=== PATIENT | female | born 1950 | race Caucasian/White ===

== ENCOUNTER → 2023-08-17 06:31 | Day surgery (SDC) | payer MEDICARE, SELFPAY | LOC: GI 06:31 | PROVIDERS: ATTENDING PHYSICIAN Internal Medicine Gastroenterology; FAMILY PHYSICIAN Nurse Practitioner Family | DX: K57.30 Diverticulosis of large intestine without perforation or abscess without bleeding (principal); K64.8 Other hemorrhoids; R19.4 Change in bowel habit; Z79.01 Long term (current) use of anticoagulants | CPT/HCPCS: 45378 ==

== ENCOUNTER 2024-01-11 23:01 | Inpatient (IN) | payer MEDICARE, SELFPAY ==
[2024-01-11] VITALS (9 sets, daily range): BP systolic 106–134; BP diastolic 56–87; BMI 31.8
[2024-01-11 13:48] LABS: Hematocrit 35.9 % (37.0-47.0); Hemoglobin 11.9 g/dL (12.0-16.0); Mean Corp Hgb Conc. 33.1 g/dL (33.0-37.0); Mean Corpuscular Hgb 28.9 pg (27.0-31.0); Mean Corpuscular Volume 87.1 fL (81.0-99.0); Platelet Count 297 10^3/uL (130-400); Red Blood Cell Count 4.12 10^6/uL (4.20-5.40); Red Cell Dist. Width 16.1 % (11.5-14.5); White Blood Cell Count 10.9 10^3/uL (4.8-10.8)
[2024-01-11 14:04] LABS: % Basophils 0.3 % (0-2); % Eosinophils 0.5 % (0-6); % Lymphocytes 7.1 % (20.5-51.1); % Monocytes 8.7 % (1.7-9.3); % Neutrophils 82.4 % (42.2-75.2); Absolute Eosinophils 0.1 10^3/uL (0-0.7); Absolute Immature Granulocytes 0.1 10^3/uL (0-0.05); Absolute Lymphocytes 0.8 10^3/uL (1.2-3.4); Nucleated Red Blood Cells % 0 %
[2024-01-11 15:10] LABS: ALT (SGPT) 12 U/L (0-35); AST (SGOT) 27 U/L (14-36); Albumin 3.9 g/dl (3.5-5.0); Alkaline Phosphatase 132 U/L (38-126); Blood Urea Nitrogen 37 mg/dl (7-17); Calcium 9.7 mg/dl (8.4-10.2); Carbon Dioxide 19 mmol/L (22-30); Chloride 101 mmol/L (98-107); Glucose 125 mg/dl (70-99); Lipase 632 U/L (23-300); Potassium 4.2 mmol/L (3.5-5.1); Sodium 136 mmol/L (135-145); Total Bilirubin 0.8 mg/dl (0.2-1.3); eGFR 26.22
[2024-01-11] MEDS: OMNIPAQUE 50 ML PO (17:56)
--- NOTE | 2024-01-11 18:23 | ED.GENMED ---
History of Present Illness
General
Chief Complaint: Abdominal Pain
Source: patient and spouse
Exam Limitations: none
Time Seen by Provider: 01/11/24 17:40
Nursing documentation reviewed up to this point in time: agreed with
History of Present Illness
History of Present Illness:
73-year-old female presents emergency room complaining of abdominal pain for the past 6 days. It started Sunday, and she has pain in her mid abdomen. She complains of the most pain in her left lower quadrant. She has a history of diverticulitis
and this feels similar. She also notes a temperature of 101 for the past 2 days.
Past History
Past History
ED Past Medical History: CAD, HTN, Hypercholesterolemia and Other (Diverticulitis)
ED Past Surgical History: Orthopedic (Left hip replacement, right knee replacement, lumbar surgery, left knee repair, right shoulder repair)
Social History
Tobacco: Non-smoker
Alcohol: None
Drug: None
Personal:
Living: with family
Review of Systems
Review of Systems
Allergies reviewed?: Yes
All Other Systems: Not applicable
Constitutional: Reports no symptoms
EENT: Reports no symptoms
Respiratory: Reports no symptoms
Cardiac: Reports no symptoms
ABD/GI: Reports abdominal pain and vomiting
: Reports no symptoms
Musculoskeletal: Reports no symptoms
Skin: Reports no symptoms
Neurological: Reports no symptoms
Endocrine: Reports no symptoms
Hematologic/Lymphatic: Reports no symptoms
Psychiatric: Reports no symptoms
Phy Exam
Physical Exam
Physical Exam:
Physical Exam
General: Afebrile
Neck: supple. no meningeal signs. normal posterior pharynx
Heart: s1/s2 regular rate and rhythm, no murmur. equal radial
pulses.
HEENT: Pupils equal round reactive to light, EOMI
Lungs: no acute respiratory distress. clear bilaterally
Abdomen: normal bowel sounds. Left lower quadrant tenderness. No CVAT
Neuro: alert and oriented. no focal neurological deficits cranial nerves II through XII intact
Skin: no rash
Psychiatric: well kept. interactive and cooperative
Extremities: no edema. no calf tenderness. negative homans. good distal pulses
Course
Orders/Labs/Results
Orders:
Orders
01/11/24 13:21
Electrocardiogram (*1) Urgent
Reason for Study: Abdominal Pain
EKG- Treatment ONCE
01/11/24 13:33
Complete Blood Count/With Diff Urgent
Comprehensive Metabolic Panel Urgent
Lipase Urgent
01/11/24 17:46
CT Abd/pel (oral only)-[facility] Only Urgent
Comment:
Reason For Exam: fever, abd pain, elevated lipase
Iohexol [Omnipaque] See Protocol PO NOW STA
01/11/24 18:29
IV Insert/Care/Rem.- Treatment PRN
0.9% Sodium Chloride 1000 ml [Nss] 1,000 ml IV BOLUS
01/11/24 18:30
Ondansetron Injectable [Zofran] 4 mg IV NOW STA
01/11/24 19:25
Urinalysis Reflex To Culture Urgent
Date Specimen was Collected: 01/11/24
Time Specimen was Collected: 19:23
Urine Microscopic Reflex Cult Urgent
Urine Culture Urgent
NIECY Source: U
Specimen Description:
Date Specimen was Collected: 01/11/24
Time Specimen was Collected: 19:23
01/11/24 21:53
Piperacillin/Tazo 4.5 Gram [Zosyn] 4.5 gram in 100 ml IV NOW
01/11/24 22:32
Lactate Level [Lactic Acid] Urgent
Abnormal Lab Results
01/11/24 01/11/24
13:33 19:25
WBC 10.9 H 10^3/uL
(4.8-10.8)
RBC 4.12 L 10^6/uL
(4.20-5.40)
Hgb 11.9 L g/dL
(12.0-16.0)
Hct 35.9 L %
(37.0-47.0)
RDW 16.1 H %
(11.5-14.5)
MPV 11.0 H fL
(7.4-10.4)
Abs Immat Gran (auto) 0.1 H 10^3/uL
(0-0.05)
Absolute Neuts (auto) 9.0 H 10^3/uL
(1.4-6.5)
Absolute Lymphs (auto) 0.8 L 10^3/uL
(1.2-3.4)
Absolute Monos (auto) 1.0 H 10^3/uL
(0.1-0.6)
Immature Gran % 1.0 H %
(0-0.5)
Neutrophils % 82.4 H %
(42.2-75.2)
Lymphocytes % 7.1 L %
(20.5-51.1)
Carbon Dioxide 19 L mmol/L
(22-30)
BUN 37 H mg/dl
(7-17)
Creatinine 2.0 H mg/dL
(0.6-1.0)
Glucose 125 H mg/dl
(70-99)
Alkaline Phosphatase 132 H U/L
(38-126)
Lipase 632 H U/L
(23-300)
Ur Occult Blood Reflex 1+ A
(Negative)
Urine RBC 3-6 A /HPF
(0-2)
Urine Bacteria (Reflex) Moderate A
(Negative)
Urine Albumin (Reflex) 1+ A
(Neg - Trace)
01/11/24 13:33
01/11/24 13:33
Vital Signs
Initial and Last Documented VS:
Initial Vital Signs
Temp Pulse Resp BP Pulse Ox
97.8 F 88 16 120/63 98
01/11/24 13:16 01/11/24 13:16 01/11/24 13:16 01/11/24 13:16 01/11/24 13:16
Last Documented Vital Signs
Temp Pulse Resp BP Pulse Ox
97.7 F 71 18 126/87 100
01/11/24 17:42 01/11/24 21:16 01/11/24 21:16 01/11/24 21:16 01/11/24 21:16
MDM/Problems Addressed
Differential Diagnosis Includes:
Appendicitis, diverticulitis
MDM/Problems Addressed:
73-year-old female with infectious enteritis, acute renal failure, right hydroureteronephrosis and possible inflamed appendix, but likely secondary. Discussed with Dr. Donohue, general surgery who will see patient in AM. Zosyn given. Lipase mildly
elevated as well. Admit to hospitalist.
Chronic conditions affecting care: Arrhythmia
*Radiology
Radiology exam reviewed: radiology read reviewed (CT abdomen pelvis shows nondistended appendix, enteritis, right hydroureteronephrosis)
*Pulse Oximetry
Patient hypoxic: no
*EKG
Interpreted by ED Provider?: Yes
EKG Intrepretation Date: 01/11/24
EKG Intrepretation Time: 13:25
Interpretation: normal
Comparison EKG: no comparison EKG present
Heart Rate: 81
Rate: normal
Rhythm: sinus
[place]: normal axis
Interval: normal interval
QRS Pattern: left vent hypertrophy
Ischemia: no ischemia
*Vba Programmer Interpretation
Rate: normal
Interpretation: normal
Heart Rate: 81
Rhythm: sinus
*Critical Care Note
Total Time (30-74mins, 75-104mins- exclusive of procedures): Not Applicable
Data Reviewed
Review of Other/Old Records Reveals: Labs
Source: records (Patient has records showing creatinine of 1.0 in the past.)
Patient Management
Discussion with other providers: Hospitalist and [employer] Leak Tester (General Surgery, Dr. Donohue)
Escalation/DeEscalation of care consider admission/obs:
Admit indicated
ED Attending Note
-
Portions of this chart may have been created with voice recognition software.� Occasional wrong word or��sound alike� substitutions may have occurred due to the inherent limitations of voice recognition software.
Discharge Plan
Departure
Patient Disposition: Admit
Date of Disposition: 01/11/24
Time of Disposition: 21:49
Admit to: Med/Surg
Presentation/result/management discussed w/ accepting MD/DO: Hospitalist
Patient with high blood pressure during this ER visit?: Yes
Condition: Good
Discharge Problem:
Enteritis, Hydroureter, right, Acute renal insufficiency
Prescriptions:
No Action
lisinopril 20 mg Tablet
20 mg PO HS
metronidazole 500 mg Tablet
500 mg PO TID
ciprofloxacin HCl 500 mg Tablet
500 mg PO BID
acetaminophen [Tylenol Extra Strength] 500 mg Tablet
1,000 mg PO Q6HPRN PRN (Reason: mild pain)
ondansetron [Zofran ODT] 8 mg Tablet,Disintegrating
8 mg PO Q8HPRN PRN (Reason: nausea)
levothyroxine 75 mcg Tablet
75 mcg PO DAILY@0700
carboxymethylcellulose sodium [Refresh Tears] 0.5 % Drops
1 drp BOTH EYES BIDPRN PRN (Reason: dry eyes)
diphenhydramine-acetaminophen [Tylenol PM Extra Strength] 25-500 mg Tablet
1 tab PO HSPRN PRN (Reason: mild pain)
simethicone [Gas-X] 80 mg Tablet,Chewable
80 mg PO DAILYPRN PRN (Reason: gas)
rosuvastatin 40 mg Tablet
40 mg PO HS
Systane (PF) 0.4-0.3 % Dropperette
1 drp BOTH EYES Q6HPRN PRN (Reason: dry eyes)
Eliquis 5 mg Tablet
5 mg PO BID
Linzess 72 mcg Capsule
72 mcg PO DAILYPRN PRN (Reason: IBS)
Patient Comments:
01/11/24: Patient get pain when she uses this medication
metoprolol succinate 50 mg Tablet Extended Release 24 Hr
50 mg PO DAILY
Referrals:
NONE,* [Family Provider] -
Interventions
Interventions:
*Risk Screen - Suicide Last Done: 01/11/24 13:16
*General Assessment Last Done: 01/11/24 13:16
*Neglect/Abuse Screening Last Done: 01/11/24 13:16
[facility] Assessment Last Done: 01/11/24 17:43
Discharge Date and Time
Print Language: DIVEHI
[2024-01-11] MEDS: NSS 1000 IV (18:54)
[2024-01-11] MEDS: ZOFRAN 4 MG IV (18:56)
[2024-01-11 20:30] LABS: Urine Albumin 1+ (Neg - Trace); Urine Bilirubin Negative (Negative); Urine Character Clear (Clear); Urine Color Yellow; Urine Glucose Negative (Negative); Urine Ketone Negative (Negative); Urine Leukocyte Negative (Negative); Urine Nitrite Negative (Negative); Urine Occult Blood 1+ (Negative); Urine Urobilinogen Negative (Neg - 1+)
[2024-01-11 20:39] LABS: Urine Bacteria Moderate (Negative)
[2024-01-11] MEDS: ZOSYN 100 IV (22:40)
[2024-01-11 22:50] LABS: Lactic Acid 0.7 mmol/L (0.7-2.0)
--- NOTE | 2024-01-11 22:54 | HPS.HSE ---
Family Physician
-
Family Physician: * NONE
Chief Complaint
-
Abd Pain / Diarrhea
History of Present Illness
Patient is a 73y F with PMH significant for IBS, ASCVD and hypothyroidism who presents to ED complaining of abdominal pain and diarrhea. Patient states that she started with symptoms on Sunday. She states that pain was initially in the RLQ and
then moved to the LLQ and is now more diffuse. She states that she had fevers at home to 101 over the past two days. She was initially constipated - having no BM for four days until Sunday. She took two Fleets enemas with good results. Since
that time, she has had diarrhea. Patient notes occasional streaks of bright red blood in the stool. She states that she has known hemorrhoids and this is not unusual for her. Patient reports nausea and has had one episode of non-bloody emesis
over the past few days.
She has had poor appetite. She states that she has crampy abdominal pain and recurrent diarrhea after eating.
Patient states that she has had similar symptoms for the past year or so. She is followed by Dr. Guerrier of the GI group. She has had colonoscopy in the past which was unremarkable.
Medical History
Past Medical History
Past Medical History: Reports Other
Additional Past Medical History:
ASCVD
IBS
Hypothyroidism
Restless Leg Syndrome
Diverticular Disease
Neuropathy
Past Surgical History: Reports Other
Additional Past Surgical History:
PTCA with Stent
Left ZARA
Right TKA
Right Shoulder Surgery
Social History
Tobacco: Non-smoker
Alcohol: Occasional
Drug: None
Family History
Family History: Not pertinent
Allergies / Home Medications
Allergies reflects when Allergies were last updated in [facility].
Home Medications with original date entered in [facility]
Allergy/Medication List:
Allergies
Allergy/AdvReac Type Severity Reaction Status Date / Time
diclofenac Allergy ORDONEZ Verified 01/11/24 22:34
meperidine [From Demerol] Allergy ORDONEZ Verified 01/11/24 22:34
Home Medications
acetaminophen 500 mg tablet (Tylenol Extra Strength) 1,000 mg PO Q6HPRN PRN mild pain 01/11/24
apixaban 5 mg tablet (Eliquis) 5 mg PO BID 01/11/24
carboxymethylcellulose sodium 0.5 % eye drops (Refresh Tears) 1 drp BOTH EYES BIDPRN PRN dry eyes 01/11/24
ciprofloxacin HCl 500 mg tablet 500 mg PO BID 01/11/24
diphenhydramine 25 mg-acetaminophen 500 mg tablet (Tylenol PM Extra Strength) 1 tab PO HSPRN PRN mild pain 01/11/24
levothyroxine 75 mcg tablet 75 mcg PO DAILY@0700 01/11/24
linaclotide 72 mcg capsule (Linzess) 72 mcg PO DAILYPRN PRN IBS 01/11/24
lisinopril 20 mg tablet 20 mg PO HS 01/11/24
metoprolol succinate 50 mg tablet,extended release 24 hr 50 mg PO DAILY 01/11/24
metronidazole 500 mg tablet 500 mg PO TID 01/11/24
ondansetron 8 mg disintegrating tablet 8 mg PO Q8HPRN PRN nausea 01/11/24
peg 400-propylene glycol (PF) 0.4 %-0.3 % eye drops in a dropperette (Systane (PF)) 1 drp BOTH EYES Q6HPRN PRN dry eyes 01/11/24
rosuvastatin 40 mg tablet 40 mg PO HS 01/11/24
simethicone 80 mg chewable tablet 80 mg PO DAILYPRN PRN gas 01/11/24
Review of Systems
-
History Source: Patient
A 12 point ROS was completed and negative except as noted: Yes
Constitutional: Reports Fever; Denies Fatigue or Chills
EENT: Denies Sore Throat
Respiratory: Denies Cough or Trouble Breathing
Cardiac: Denies Chest Pain or Palpitations
Abdomen/GI: Reports Abdominal Pain, Nausea, Vomiting, Diarrhea, Constipated, Bloody Stools and Anorexia; Denies Black Stools
: Denies Dysuria, Frequency, Flank Pain or Bleeding
Musculoskeletal: Denies Joint Pain or Edema
Neurological: Denies Dizzy or Headache
Psych: Denies Depression or Anxiety
Physical Exam
Vital Signs
Vital Signs
Temp Pulse Resp BP Pulse Ox
97.7 F 71 18 126/87 100
01/11/24 17:42 01/11/24 21:16 01/11/24 21:16 01/11/24 21:16 01/11/24 21:16
Physical Exam
General: Other (73y F in mild distress due to abdominal pain.)
HEENT: Moist mucous membranes and PERRLA
Respiratory: Clear; No Wheezes, Rales or Rhonchi
Cardiac: S1/S2 and Regular Rhythm; No Murmur
GI: Soft, Non Distended and Other (Bowel sounds are diminished throughout. Diffuse tenderness. Not firm / distended.)
Musculoskeletal: No Clubbing, No Cyanosis and Other (Trace - 1+ edema bilateral ankles)
Neuro: AO x 3
Laboratory Results
-
01/11/24 13:33
01/11/24 13:33
Laboratory Results
Lactic Acid 0.7 mmol/L (0.7-2.0) 01/11/24 22:32
Total Bilirubin 0.8 mg/dl (0.2-1.3) 01/11/24 13:33
AST 27 U/L (14-36) 01/11/24 13:33
ALT 12 U/L (0-35) 01/11/24 13:33
Alkaline Phosphatase 132 U/L (38-126) H 01/11/24 13:33
Lipase 632 U/L (23-300) H 01/11/24 13:33
Impression/Plan
-
A/P: Patient is a 73y F with PMH significant for IBS, ASCVD and thyroid disease who presents to ED complaining of abdominal pain and N/V/D.
Enteritis / Colitis
- Admit for further evaluation and treatment.
- Patient with diffuse abdominal pain, N/V and diarrhea x several days.
- Started on PO abx 24 hours ago with Cipro / Flagyl.
- Continue abx with IV Zosyn for now.
- Follow stool studies, labs, exam etc for improvement.
- ? inflammation of appendix - but likely secondary to underlying / primary process.
- Surgery evaluation for additional recommendations.
- GI evaluation.
- CT scan shows inflammation throughout the abdomen with questionable skip lesions, etc.
BRYCE
Anion Gap Metabolic Acidosis
R Hydronephrosis
Kidney Stones
- SCr = 2 with no prior labs for comparison.
- CT scan shows R hydronephrosis with ? distal ureteral stones.
- IVF and follow for improvement in renal function.
- Urology evaluation for CT review / further evaluation.
- ? ureteroscopy / stent if stones present and renal function does not improve.
ASCVD
- Stable. No chest pain / dyspnea. Remote history of PTCA / stent.
- Hold Eliquis for now given potential interventions, etc.
Hypothyroidism
- Stable. Continue T4 supplementation.
DVT Prophylaxis: Hold Eliquis acutely given potential need for interventions, etc. SCDs.
Code Status: Full
[2024-01-12] VITALS: BP 124/55
[2024-01-12] MEDS: DILAUDID 0.5 MG IV (00:12)
[2024-01-12] MEDS: COMPAZINE 5 MG IV (00:31)
[2024-01-12 01:15] VITALS: BP 126/77; BMI 30.8
[2024-01-12] MEDS: NSS 1000 IV ×3 (03:32→22:39)
[2024-01-12] MEDS: SYNTHROID 75 MCG PO (06:52)
[2024-01-12] MEDS: ZOSYN 50 IV ×3 (06:54→17:09)
[2024-01-12 07:00] VITALS: BP 126/58
[2024-01-12 07:34] LABS: Hematocrit 34.1 % (37.0-47.0); Hemoglobin 11.3 g/dL (12.0-16.0); Mean Corp Hgb Conc. 33.1 g/dL (33.0-37.0); Mean Corpuscular Hgb 29.2 pg (27.0-31.0); Mean Corpuscular Volume 88.1 fL (81.0-99.0); Mean Platelet Volume 11.5 fL (7.4-10.4); Platelet Count 288 10^3/uL (130-400); Red Blood Cell Count 3.87 10^6/uL (4.20-5.40); Red Cell Dist. Width 16.4 % (11.5-14.5); White Blood Cell Count 11.9 10^3/uL (4.8-10.8)
[2024-01-12 07:55] LABS: Blood Urea Nitrogen 24 mg/dl (7-17); Calcium 9.7 mg/dl (8.4-10.2); Carbon Dioxide 20 mmol/L (22-30); Chloride 104 mmol/L (98-107); Estimated Creatinine Clearance 37 ml/min; Glucose 83 mg/dl (70-99); Potassium 4.6 mmol/L (3.5-5.1); Sodium 139 mmol/L (135-145); eGFR 37.03
[2024-01-12] MEDS: TYLENOL 650 MG PO (08:24)
[2024-01-12] MEDS: TOPROL XL 50 MG PO (08:24)
--- NOTE | 2024-01-12 09:30 | CON.MD ---
Consultation - Medical
-
73F w/ long-standing h/o chronic GI issues presenting w/ generalized abdominal pain, bloating, and diarrhea.
Cr notably elevated at 2.0 in ED.
Denies new voiding symptoms.
Does note some pelvic pressure.
CTAP w/ PO contrast => mild to moderate right hydroureteronephrosis, non-obstructing 1 mm right renal stone, suspected punctate distal right ureteral stones <[address] review
WBC minimally elevated
Cr 2.0 => 1.5
UA +RBCs, negative WBCs
Given no lateralizing right flank symptoms and improving Cr, do not suspect patient will require surgical intervention for SUSPECTED punctate distal right ureteral stones.
- CT imaging/report reviewed w/ patient
- Trend Cr
- JAMES in AM
- start tamsulosin 0.4 mg qhs
D/w patient.
D/w Hospitalist.
--- NOTE | 2024-01-12 10:43 | CON.GS ---
Addendum entered and electronically signed by Saurabh Donohue MD 01/12/24 11:43:
I saw and examined the patient.
The Fire Boss's note was reviewed and I agree with the note.
Comment: Feels slightly better this am. 1 week of symptoms. Started PO abx yesterday without improvement prompting ED presentation. Similar to previous pain with diverticulitis. TTP to LLQ and suprapubic area mainly. AFVSS. Leukocytosis noted. ?
hydronephrosis/nephrolithiasis, Uro consult pending. Plan for non-op mgmt for diverticulitis with IV abx and bowel rest. OK for CLD pending urology eval.
Original Note:
Consultation
-
Date/Time Consultation Requested: 01/12/24 0200
Requesting Provider: Raciel
Performing Provider: Miguel A Donohue
Reason for Consultation: Enteritis / ? Appendicitis
Medical History
-
Chief Complaint: abdominal pain
History of Present Illness:
Mr. Dalton is a 73 yo female with a history of CAD with stent, Afib on eliquis, renal calculi requiring surgery, diverticulitis (entire colon with diverticular disease on colonoscopy 07/2023) and hypothyroidism who has been experiencing
intermittent abdominal pain over the past week. Initially her pain began centrally in her abdomen and then she noted it radiated down into the RLQ and subsequently into the LLQ and pelvis. On exam, she has generalized mild tenderness to the upper
abdomen which is more severe in the pelvis and LLQ. She notes a poor appetite since pain began with nausea and vomiting one day mid week. She denies gross hematuria or dysuria. She denies flank pain. She reports initial constipation at onset of
symptoms which she managed with a fleet enema x1 about a week ago. She was able to pass a BM without much relief in pain and subsequently began having diarrhea. She has noted some blood in her stools which she reports is similar to prior
hemorrhoidal events. She noted a fever of 101 mid week for 2 days prompting her to call her frame catcher. She notes that the pain at that point was similar to prior diverticulitis episodes and so she was prescribed cipro and flagyl which she
began taking on the day prior to presentation. Yesterday, as she felt no better she presented through the ED for evaluation.
Past Medical History
Past Medical History: Arrhythmias (AFib on Eliquis), CAD, Diverticulitis, HTN, Hypercholesterolemia, Hypothyroidism and Other (IBS-C on Linzess)
Past Surgical History: Cardiac (PTCA with stent), Orthopedic (left adrian, right TKA, right shoulder surgery) and Urological (ureteroscopy for stones 2022)
Social History
Tobacco: Non-Smoker
Alcohol: Occasional
Family History
Family History: Reviewed & Not Pertinent
Allergies / Home Medications
Allergy/AdvReac Type Severity Reaction Status Date / Time
diclofenac Allergy ORDONEZ Verified 01/11/24 22:34
meperidine [From Demerol] Allergy ORDONEZ Verified 01/11/24 22:34
�Medication �Instructions �Recorded �Confirmed �Type
acetaminophen 500 mg tablet 1,000 mg PO Q6HPRN PRN mild pain 01/11/24 01/11/24 History
(Tylenol Extra Strength)
apixaban 5 mg tablet (Eliquis) 5 mg PO BID Blood Clot 01/11/24 01/11/24 History
Prevention/Tx
carboxymethylcellulose sodium 0.5 1 drp BOTH EYES BIDPRN PRN dry eyes 01/11/24 01/11/24 History
% eye drops (Refresh Tears)
ciprofloxacin HCl 500 mg tablet 500 mg PO BID Infection 01/11/24 01/11/24 History
diphenhydramine 25 1 tab PO HSPRN PRN mild pain 01/11/24 01/11/24 History
mg-acetaminophen 500 mg tablet
(Tylenol PM Extra Strength)
levothyroxine 75 mcg tablet 75 mcg PO DAILY@0700 Thyroid 01/11/24 01/11/24 History
linaclotide 72 mcg capsule 72 mcg PO DAILYPRN PRN IBS 01/11/24 01/11/24 History
(Linzess)
lisinopril 20 mg tablet 20 mg PO HS Blood Pressure 01/11/24 01/11/24 History
metoprolol succinate 50 mg 50 mg PO DAILY Blood Pressure 01/11/24 01/11/24 History
tablet,extended release 24 hr
metronidazole 500 mg tablet 500 mg PO TID Infection 01/11/24 01/11/24 History
ondansetron 8 mg disintegrating 8 mg PO Q8HPRN PRN nausea 01/11/24 01/11/24 History
tablet
peg 400-propylene glycol (PF) 0.4 1 drp BOTH EYES Q6HPRN PRN dry eyes 01/11/24 01/11/24 History
%-0.3 % eye drops in a dropperette
(Systane (PF))
rosuvastatin 40 mg tablet 40 mg PO HS High Cholesterol 01/11/24 01/11/24 History
simethicone 80 mg chewable tablet 80 mg PO DAILYPRN PRN gas 01/11/24 01/11/24 History
Review of Systems
-
History Source: Patient
All other systems: Negative unless noted
A 10 point review of systems was completed, and was negative except as per HPI.
Physical Exam
Vital Signs
Temp Pulse Resp BP Pulse Ox
98.2 F 80 16 126/58 99
01/12/24 07:00 01/12/24 07:00 01/12/24 07:00 01/12/24 07:00 01/12/24 07:00
01/11/24 01/12/24 01/13/24
06:59 06:59 06:59
Actual Weight 83.915 kg
Body Mass Index (BMI) 30.8
Lab Results
01/12/24 07:00
01/12/24 07:00
WBC 11.9 10^3/uL (4.8-10.8) H 01/12/24 07:00
Hgb 11.3 g/dL (12.0-16.0) L 01/12/24 07:00
Hct 34.1 % (37.0-47.0) L 01/12/24 07:00
Plt Count 288 10^3/uL (130-400) 01/12/24 07:00
Abs Immat Gran (auto) 0.1 10^3/uL (0-0.05) H 01/11/24 13:33
Neutrophils % 82.4 % (42.2-75.2) H 01/11/24 13:33
Physical Exam
General: Well Developed and Well Nourished
HEENT: Moist Mucous Membranes
Respiratory: Non Labored Respirations
GI: Soft and Tender (upper quadrants with mild generalized tenderness. LLQ more tender than RLQ. Severe focal tenderness in pelvis)
Skin: Warm and Dry
Neuro: Awake, Alert and AO x 3
Psych: Calm
Data Reviewed
-
CT Scan: Image Personally Visualized and interpreted, Report Reviewed by me, Discussed with Physician and Discussed with Patient
Labs: Labs Reviewed by me, Discussed with Physician and Discussed with Patient
Old Records: Reviewed
Assessment / Plan
-
73 yo female with a history of CAD with stent, AFib on Eliquis, renal calculi requiring surgery, and diverticulitis presenting through the ED with 1 week of intermittent lower abdominal pain with anorexia and diarrhea. Fever with n/v earlier this
week. Focally tender to the pelvis and LLQ with generalized tenderness throughout. Started on ABX one day prior to admission by GI team after she called the service with her symptoms. CT imaging reviewed with thickening of the bowel and inflammatory
stranding of terminal ileum and surrounding structures, diverticular disease noted. Right hydro with ?stone. Unclear etiology of this inflammation/infection although suspect possible diverticulitis given exam and history, low suspicion for
appendicitis. Afebrile with stable vital signs. Leukocytosis is present. Abnormal UA noted.
--Will follow closely on antibiotics
--Urology consult pending
--Follow labs, urine cx
--Ok for clear liquids today
--Please continue to hold PO AC for now
--Medical management as per primary team
--- NOTE | 2024-01-12 10:48 | W.PN.HOSP.TC ---
Today's Communication/Plan
-
Continue current care
Assessment / Plan
Assessment / Plan
Gen-AAOx3, NAD
HEENT-NC, AT, anicteric, clear oral mm
Neck-supple
CV-reg, no M, +S1/S2
Lungs-clear B/L
Abd-soft, nondistended, diffuse tenderness without guarding
Ext-no edema
Musculoskeletal-no cyanosis, clubbing
Skin-warm and dry
Neuro-grossly non-focal
Psych-calm, cooperative
BRYCE -likely due to volume depletion with vomiting and diarrhea prior to admission. Creatinine improving with IV fluid support. Metabolic acidosis noted.
Abdominal pain -differential diagnosis includes acute diverticulitis versus other etiology, enteritis. Doubt pancreatitis despite lipase elevation. Pancreas appears unremarkable on CT with oral contrast.
Clear liquid diet started. Continue IV antibiotics. GI, general surgery consulted.
Stool studies ordered.
Nephrolithiasis -mild to moderate hydronephrosis on the right side noted on CT with right-sided nephrolithiasis. Discussed with urology, hold Eliquis for the next 24 hours. It is anticipated that she would likely pass the stones on her own. Check
renal ultrasound in the morning.
Atrial fibrillation -unknown type. Hold Eliquis pending clearance from urology.
CAD -stable.
IBS
Hypothyroidism -continue levothyroxine.
Peripheral neuropathy
RLS
Hyperlipidemia
Obesity due to excess calories
Full code
Anticipated Discharge: > 48 hours
Subjective/Interval History
-
Date of Service: January 12, 2024
Patient seen and examined. Overall feeling somewhat better. Less abdominal pain.
Objective Data
-
Labs:
Laboratory Results
01/12/24
07:00
WBC 11.9 H
Hgb 11.3 L
Hct 34.1 L
Plt Count 288
Sodium 139
Potassium 4.6
Chloride 104
Carbon Dioxide 20 L
BUN 24 H
Creatinine 1.5 H
Glucose 83
Calcium 9.7
Vital Signs:
Vital Signs
Temp Pulse Resp BP Pulse Ox
98.2 F 80 16 126/58 99
01/12/24 07:00 01/12/24 07:00 01/12/24 07:00 01/12/24 07:00 01/12/24 07:00
I&O
01/11/24 01/12/24 01/13/24
06:59 06:59 06:59
Intake Total 495 / 495
Output Total 350 / 350
Balance 145 / 145
Review of Systems
-
History Source: Patient
All other systems: Reviewed and negative
--- NOTE | 2024-01-12 11:38 | CON.GI ---
Addendum entered and electronically signed by Travis Diaz MD 01/12/24 17:04:
I saw and examined the patient.
The PROOF CARRIER or PA's note was reviewed and I agree with the note.
Comment:
Pt is a 73 y/o woman with a hx of chronic GI issues following now with Dr. Guerrier. Last colonoscopy normal in july 2023. She states symptoms of constipation, abdominal pain then diarrhea. Had a severe flare of these symptoms and came to the ER.
CT scan showed Thickening of TI and underdistention of appendix (less likely appendicitis).
abd: soft, mildly tender
impression:
abdominal pain
diarrhea
possible enteritis less likely crohns
chronic GI symptoms
plan:
antibiotics
stool studies
po as tolerated
crp, sed rate, fecal calprotectin
IV fluids
Addendum entered and electronically signed by PACO Nickerson 01/12/24 13:04:
will add CRP, ESR and fecal dottie
Original Note:
Consultation
-
Date/Time Consultation Requested: 01/12/24 0200
Date/Time Consultation Performed: 01/12/24 1130
Requesting Provider: Romeo Schrader DO
Performing Provider: PACO Mitchell, Travis Diaz MD
Reason for Consultation: enteritis
Medical History
Chief Complaint / HPI
Chief Complaint: abdominal pain
History of Present Illness:
Pt is a 73yo with hx CAD prior PTCA and stents, HTN, hypercholesterolemia, afib on Eliquis, IBS, diverticulitis with onset of abdominal pain and fever. On admission CT completed with concern for infectious enteritis vs inflammatory process such
as crohns disease and asked to see for further evaluation. She was noted with mild to moderate right hydro with distended ureter without calculus and tiny non obstructing stone. In review with patient she has been have ongoing GI issues for last 2
years with work up at [facility] and now [place] [facility]. Symptoms started after knee surgery in 03/2022. She initially thought it was related to narcotic use with knee surgery and recurrent issues with kidney stone and narcotic use at that time
but now persistent symptoms despite no pain meds. She also considered thyroid issue as some adjustment in medications. She states symptoms began with feeling of constipation than abdominal pain. She will pain MOM or Linzess but describes
increased pain with laxative use then some loose stools. She admits to some difficulty with eating and wt loss during severe episodes. She does admit to other testing including EGD with duodenal erosion and erosive gastropathy in 2021 then
normal in 2022. and ?GE scan with slow transit . Per records was also given Reglan and Emycin but unable to tolerate. Most recent colonoscopy with Dr. Guerrier in july with diverticulosis and hemorrhoids.
She currently admits to occasional GERD. She has had nausea with small amount of vomiting Current abdominal pain 2/10 but worse with palpation and worse in LLQ. Stool have been loose no black stools but occasional rectal bleeding with
hemorrhoids.
Past Medical History
Past Medical History: Arrhythmias (afib), GERD and Other (ASCVD, IBS,restless leg syndrome, diverticulosis, diverticulitis, neuropathy, ADAL, HH)
Past Surgical History: Cardiac (PTCA and stent ) and Orthopedic (left ZARA, right TKA, right shoulder surgery)
Social History
Tobacco: Non-Smoker
Alcohol: Occasional
Drug: None
Personal:
Living: With Family
Family History
Family History: Other (mother breast CA, brother possible colon CA )
Allergies / Home Medications
Allergy/AdvReac Type Severity Reaction Status Date / Time
diclofenac Allergy ORDONEZ Verified 01/11/24 22:34
meperidine [From Demerol] Allergy ORDONEZ Verified 01/11/24 22:34
�Medication �Instructions �Recorded
acetaminophen 500 mg tablet 1,000 mg PO Q6HPRN PRN mild pain 01/11/24
(Tylenol Extra Strength)
apixaban 5 mg tablet (Eliquis) 5 mg PO BID Blood Clot 01/11/24
Prevention/Tx
carboxymethylcellulose sodium 0.5 1 drp BOTH EYES BIDPRN PRN dry eyes 01/11/24
% eye drops (Refresh Tears)
ciprofloxacin HCl 500 mg tablet 500 mg PO BID Infection 01/11/24
diphenhydramine 25 1 tab PO HSPRN PRN mild pain 01/11/24
mg-acetaminophen 500 mg tablet
(Tylenol PM Extra Strength)
levothyroxine 75 mcg tablet 75 mcg PO DAILY@0700 Thyroid 01/11/24
linaclotide 72 mcg capsule 72 mcg PO DAILYPRN PRN IBS 01/11/24
(Linzess)
lisinopril 20 mg tablet 20 mg PO HS Blood Pressure 01/11/24
metoprolol succinate 50 mg 50 mg PO DAILY Blood Pressure 01/11/24
tablet,extended release 24 hr
metronidazole 500 mg tablet 500 mg PO TID Infection 01/11/24
ondansetron 8 mg disintegrating 8 mg PO Q8HPRN PRN nausea 01/11/24
tablet
peg 400-propylene glycol (PF) 0.4 1 drp BOTH EYES Q6HPRN PRN dry eyes 01/11/24
%-0.3 % eye drops in a dropperette
(Systane (PF))
rosuvastatin 40 mg tablet 40 mg PO HS High Cholesterol 01/11/24
simethicone 80 mg chewable tablet 80 mg PO DAILYPRN PRN gas 01/11/24
Review of Systems
-
History Source: Patient
Constitutional: Reports Weight Loss (with difficulty eating with episodes of pain )
EENT: Reports No Symptoms
Respiratory: Reports No Symptoms
Cardiac: Reports No Symptoms
Abdomen/GI: Reports Abdominal Pain, Nausea, Diarrhea, Constipated and Bloody Stools (with hemorrhoids )
: Reports No Symptoms
Musculoskeletal: Reports No Symptoms
Skin: Reports No Symptoms
Neurological: Reports Weakness
Endocrine: Reports No Symptoms
Hematologic/Lymphatic: Reports Bleeding (with hemorrhoids )
Vital Signs
Temp Pulse Resp BP Pulse Ox
98.2 F 80 16 126/58 99
01/12/24 07:00 01/12/24 07:00 01/12/24 07:00 01/12/24 07:00 01/12/24 07:00
Physical Exam
Exam
General: Well Developed, Well Nourished and No Apparent Distress
HEENT: Normocephalic and Anicteric
Respiratory: Clear
Cardiac: Regular Rhythm
GI: Soft, Non Distended and Tender (diffuse worse mid lower and LLQ )
Musculoskeletal: No Clubbing and No Cyanosis
Skin: Warm and Dry
Neuro: Awake, Alert and AO x 3
Psych: Calm
Results
WBC 11.9 10^3/uL (4.8-10.8) H 01/12/24 07:00
Hgb 11.3 g/dL (12.0-16.0) L 01/12/24 07:00
Hct 34.1 % (37.0-47.0) L 01/12/24 07:00
MCV 88.1 fL (81.0-99.0) 01/12/24 07:00
Plt Count 288 10^3/uL (130-400) 01/12/24 07:00
Absolute Neuts (auto) 9.0 10^3/uL (1.4-6.5) H 01/11/24 13:33
Sodium 139 mmol/L (135-145) 01/12/24 07:00
Potassium 4.6 mmol/L (3.5-5.1) 01/12/24 07:00
Chloride 104 mmol/L (98-107) 01/12/24 07:00
Carbon Dioxide 20 mmol/L (22-30) L 01/12/24 07:00
BUN 24 mg/dl (7-17) H 01/12/24 07:00
Creatinine 1.5 mg/dL (0.6-1.0) H 01/12/24 07:00
Calcium 9.7 mg/dl (8.4-10.2) 01/12/24 07:00
Total Bilirubin 0.8 mg/dl (0.2-1.3) 01/11/24 13:33
AST 27 U/L (14-36) 01/11/24 13:33
ALT 12 U/L (0-35) 01/11/24 13:33
Alkaline Phosphatase 132 U/L (38-126) H 01/11/24 13:33
Lipase 632 U/L (23-300) H 01/11/24 13:33
Diagnostic Image Results:
01/11/24 CT Abd/pel (oral only)-DH Only
Unremarkable unenhanced appearance of the pancreas.
Abnormal appearance of the bowel, as described. Possibly related to infectious enteritis. The possibility of inflammatory process, such as Crohn's disease may be considered. Underdistention of the appendix may reflect secondary inflammatory changes,
as opposed to primary appendicitis.
Diverticulosis without acute diverticulitis.
Mild to moderate right hydronephrosis. Uncertain etiology. There appear to be 2 tiny calcific foci in the right lower pelvis, though difficult to determine the relationship to the distal ureter. The ureter appears distended to the level of the
common iliac vessels. However, no other evidence to suggest ureteral calculus. There is a tiny 1 mm nonobstructing mid to upper pole right renal calculus.
Prior GI Procedures:
EGD: 02/2023 [facility] normal esophagus, small HH, normal pylorus normal duodenum Dr. Chang
EGD 11/2021- small HH, erosive gastropathy, duodenal erosions Dr. Duong
Colonoscopy: 2021 Dr. Massey- diverticulosis with chandrakant diverticulum erythema
colonoscopy 07/2023 [facility] - Diverticulosis in the entire examined colon.
- Internal hemorrhoids.
- The examination was otherwise normal.
- No specimens collected.
Assessment / Plan
-
Pt is a 73yo with hx CAD prior PTCA and stents, HTN, hypercholesterolemia, afib on Eliquis, IBS, diverticulitis with onset of abdominal pain and fever. On admission CT completed with concern for infectious enteritis vs inflammatory process such
as crohns disease and asked to see for further evaluation. She was noted with mild to moderate right hydro with distended ureter without calculus and tiny non obstructing stone. In review with patient she has been have ongoing GI issues for last 2
years with work up at [facility] and now [place]. Symptoms started after knee surgery in 03/2022. She initially thought it was related to narcotic use with knee surgery and recurrent issues with kidney stone and narcotic use at that time
but now persistent symptoms despite no pain meds. She also considered thyroid issue as some adjustment in medications. She states symptoms began with feeling of constipation than abdominal pain. She will pain MOM or Linzess but describes
increased pain with laxative use then some loose stools. She admits to some difficulty with eating and wt loss during severe episodes. She does admit to other testing including EGD with duodenal erosion and erosive gastropathy in 2021 then
normal in 2022. and ?GE scan with slow transit . Per records was also given Reglan and Emycin but unable to tolerate. Most recent colonoscopy with Dr. Guerrier in july with diverticulosis and hemorrhoids.
-enteritis with mild to moderate TI thickening with nasuea , vomiting abdominal pain on admission
-possible diverticultis
-hydro on CT
-leukocytosis
-hx period episode of pain with constipation and difficulty eating and wt loss
-BRYCE on admission
other med problems:
-ASCVD
-afib- eliquis
-hypothyroidism
-IBS
-diverticulitis
PLAN:Etiology of enteritis related to infectious etiology vs chronic issues such as crohns ongoing GI symptoms for 2 years
await stool studies
pain control
advance diet as tolerated
cont abx
t/c OP MRE when improved from current symptoms to exclude underlying SB process
s/p surgical eval for possible diverticulitis
urology consult pending
pt due OP follow up with Cheyanne ludwig 02/05/24 at 11:30
-
-
-
Thank you for consultation and allowing me to participate in the patient's care. Please call the contracts administrator GI physician during the after hours with any questions or concerns.
[2024-01-12 13:23] LABS: Erythrocyte Sed Rate 93 mm/hour (0-20)
[2024-01-12] MEDS: FLOMAX 0.4 MG PO (13:29)
[2024-01-12 14:08] LABS: C-Reactive Protein > 270.00 mg/L (0.0-10.00)
[2024-01-12 15:00] VITALS: BP 133/61
--- NOTE | 2024-01-12 15:58 | CM ---
met with patient at bedside.patient lives with her spouse in [facility] with 2 jaziel,her bed and bath is on the second level,she amb i during day and uses a walker at night.patient has had a vn aftr surgry and has been to [facility] acute [facility] in past.
PCP: Jasen Calixto NP [facility] : [facility] in [place]
PMH:ibs,divrticulitis,afib on elqiuis,cad sp ptca and stnets,htn,hypothyroid
patient is adm with enteritis/colitis on iv zosyn,starting clear liquids,ivf 125cc/hr.Plan:home with no needs.
[2024-01-12] MEDS: TYLENOL 1000 MG PO (17:09)
[2024-01-12 23:00] VITALS: BP 132/59
[2024-01-13] MEDS: DILAUDID 0.5 MG IV (00:21)
[2024-01-13] MEDS: ZOSYN 50 IV ×3 (00:21→12:32)
[2024-01-13] MEDS: SYNTHROID 75 MCG PO (05:20)
[2024-01-13 06:33] LABS: Hematocrit 28.6 % (37.0-47.0); Hemoglobin 9.4 g/dL (12.0-16.0); Mean Corp Hgb Conc. 32.9 g/dL (33.0-37.0); Mean Corpuscular Hgb 29.8 pg (27.0-31.0); Mean Corpuscular Volume 90.8 fL (81.0-99.0); Mean Platelet Volume 11.2 fL (7.4-10.4); Platelet Count 225 10^3/uL (130-400); Red Blood Cell Count 3.15 10^6/uL (4.20-5.40); Red Cell Dist. Width 16.5 % (11.5-14.5); White Blood Cell Count 8.3 10^3/uL (4.8-10.8)
[2024-01-13 07:01] LABS: Blood Urea Nitrogen 13 mg/dl (7-17); Carbon Dioxide 21 mmol/L (22-30); Chloride 108 mmol/L (98-107); Estimated Creatinine Clearance 55 ml/min; Glucose 82 mg/dl (70-99); Potassium 4.1 mmol/L (3.5-5.1); Sodium 140 mmol/L (135-145); eGFR > 60.00
[2024-01-13 07:30] VITALS: BP 144/61
[2024-01-13] MEDS: TYLENOL 1000 MG PO (08:35)
[2024-01-13] MEDS: TOPROL XL 50 MG PO (08:35)
[2024-01-13] MEDS: NSS 1000 IV (08:36)
--- NOTE | 2024-01-13 10:16 | W.PN.GI.CBS2 ---
Today's Communication / Plan
-
advance diet as tolerated
Assessment / Plan
-
Pt is a 73yo with hx CAD prior PTCA and stents, HTN, hypercholesterolemia, afib on Eliquis, IBS, diverticulitis with onset of abdominal pain and fever. On admission CT completed with concern for infectious enteritis vs inflammatory process such
as crohns disease and asked to see for further evaluation. She was noted with mild to moderate right hydro with distended ureter without calculus and tiny non obstructing stone. In review with patient she has been have ongoing GI issues for last 2
years with work up at [facility] and now [facility]. Symptoms started after knee surgery in 03/2022. She initially thought it was related to narcotic use with knee surgery and recurrent issues with kidney stone and narcotic use at that time
but now persistent symptoms despite no pain meds. She also considered thyroid issue as some adjustment in medications. She states symptoms began with feeling of constipation than abdominal pain. She will pain MOM or Linzess but describes
increased pain with laxative use then some loose stools. She admits to some difficulty with eating and wt loss during severe episodes. She does admit to other testing including EGD with duodenal erosion and erosive gastropathy in 2021 then
normal in 2022. and ?GE scan with slow transit . Per records was also given Reglan and Emycin but unable to tolerate. Most recent colonoscopy with Dr. Guerrier in july with diverticulosis and hemorrhoids.
-enteritis with mild to moderate TI thickening with nasuea , vomiting abdominal pain on admission
-possible diverticultis
-hydro on CT
-leukocytosis
-hx period episode of pain with constipation and difficulty eating and wt loss
-BRYCE on admission
other med problems:
-ASCVD
-afib- eliquis
-hypothyroidism
-IBS
-diverticulitis
PLAN:Etiology of enteritis related to infectious etiology vs chronic issues such as crohns ongoing GI symptoms for 2 years
await stool studies
advance diet as tolerated
cont abx
t/c OP MRE when improved from current symptoms to exclude underlying SB process
urology f/u
pt due OP follow up with Cheyanne ludwig 02/05/24 at 11:30
-
Subjective
Subjective
Date of Service: January 13, 2024
Pt doing better, less abdominal pain
Objective
Data Reviewed
Laboratory Data:
Laboratory Results
01/13/24 04:50
01/13/24 04:50
Laboratory Results
Total Bilirubin 0.8 mg/dl (0.2-1.3) 01/11/24 13:33
AST 27 U/L (14-36) 01/11/24 13:33
ALT 12 U/L (0-35) 01/11/24 13:33
Alkaline Phosphatase 132 U/L (38-126) H 01/11/24 13:33
Lipase 632 U/L (23-300) H 01/11/24 13:33
Vital Signs and I&O:
Vital Signs
Temp Pulse Resp BP Pulse Ox
98.2 F 76 16 144/61 95
01/13/24 07:30 01/13/24 08:35 01/13/24 07:30 01/13/24 08:35 01/13/24 07:30
I&O
01/12/24 01/13/24 01/14/24
06:59 06:59 06:59
Intake Total 1315 / 1315 480 / 480
Output Total 350 / 350
Balance 965 / 965 480 / 480
Physical Exam
Physical Exam
Cardiology: S1 and S2
GI: Soft and Non Distended
[2024-01-13] MEDS: ELIQUIS 5 MG PO (12:16)
--- NOTE | 2024-01-13 12:35 | W.PN.HOSP.TC ---
Today's Communication/Plan
-
Follow-up renal ultrasound
Discharge
Assessment / Plan
Assessment / Plan
Gen-AAOx3, NAD
HEENT-NC, AT, anicteric, clear oral mm
Neck-supple
CV-reg, no M, +S1/S2
Lungs-clear B/L
Abd-soft, nondistended, diffuse tenderness without guarding
Ext-no edema
Musculoskeletal-no cyanosis, clubbing
Skin-warm and dry
Neuro-grossly non-focal
Psych-calm, cooperative
BRYCE -likely due to volume depletion with vomiting and diarrhea prior to admission. BRYCE resolved.
Abdominal pain -differential diagnosis includes acute diverticulitis versus other etiology, enteritis. Doubt pancreatitis despite lipase elevation. Pancreas appears unremarkable on CT with oral contrast. Abdominal discomfort improved.
Started low residue diet today. Still with loose stools.
Stool studies ordered, still pending.
Nephrolithiasis -mild to moderate hydronephrosis on the right side noted on CT with right-sided nephrolithiasis. Okay to resume Eliquis as per urology. It is anticipated that she would likely pass the stones on her own. Renal ultrasound
completed, report pending.
Atrial fibrillation -unknown type. Resume Eliquis.
Acute normocytic anemia -baseline hemoglobin unknown. 9.4 this morning. Will check CBC as an outpatient and follow-up. No evidence of bleeding clinically.
CAD -stable.
IBS
Hypothyroidism -continue levothyroxine.
Peripheral neuropathy
RLS
Hyperlipidemia
Obesity due to excess calories
Full code
Dispo -anticipate discharge today. Outpatient follow-up with GI, PCP, urology. Surgical service okay with discharge.
31-minute spent in discharge process.
Anticipated Discharge: Today
Subjective/Interval History
-
Date of Service: January 13, 2024
Patient seen and examined. Eager to go home. Minimal abdominal discomfort. No complaints.
Objective Data
-
Labs:
Laboratory Results
01/13/24
04:50
WBC 8.3
Hgb 9.4 L
Hct 28.6 L
Plt Count 225 D
Sodium 140
Potassium 4.1
Chloride 108 H
Carbon Dioxide 21 L
BUN 13
Creatinine 1.0
Glucose 82
Calcium 9.0
Vital Signs:
Vital Signs
Temp Pulse Resp BP Pulse Ox
98.2 F 76 16 144/61 95
01/13/24 07:30 01/13/24 08:35 01/13/24 07:30 01/13/24 08:35 01/13/24 07:30
I&O
01/12/24 01/13/24 01/14/24
06:59 06:59 06:59
Intake Total 1315 / 1315 480 / 480
Output Total 350 / 350
Balance 965 / 965 480 / 480
Review of Systems
-
History Source: Patient
All other systems: Reviewed and negative
--- NOTE | 2024-01-13 12:47 | W.DS.TRANS ---
DC Summary - Structural Iron Worker
-
Discharge Instructions:
Discharge Diagnosis/Procedures Acute diverticulitis, anemia, nephrolithiasis
Diet Low Residue
Activity As tolerated
Driving Restrictions As prior to admission
Bathing Restrictions None
Blood Work CBC in 1 week with your primary care doctor
Instructions:
Stand-Alone Forms:
Changes to Home Medications: No
Discharge Medications:
DC Medications w/original date entered in [facility]
acetaminophen 500 mg tablet (Tylenol Extra Strength) 1,000 mg PO Q6HPRN PRN mild pain 01/11/24
apixaban 5 mg tablet (Eliquis) 5 mg PO BID Blood Clot Prevention/Tx 01/11/24
carboxymethylcellulose sodium 0.5 % eye drops (Refresh Tears) 1 drp BOTH EYES BIDPRN PRN dry eyes 01/11/24
diphenhydramine 25 mg-acetaminophen 500 mg tablet (Tylenol PM Extra Strength) 1 tab PO HSPRN PRN mild pain 01/11/24
levothyroxine 75 mcg tablet 75 mcg PO DAILY@0700 Thyroid 01/11/24
linaclotide 72 mcg capsule (Linzess) 72 mcg PO DAILYPRN PRN IBS 01/11/24
lisinopril 20 mg tablet 20 mg PO HS Blood Pressure 01/11/24
metoprolol succinate 50 mg tablet,extended release 24 hr 50 mg PO DAILY Blood Pressure 01/11/24
ondansetron 8 mg disintegrating tablet 8 mg PO Q8HPRN PRN nausea 01/11/24
peg 400-propylene glycol (PF) 0.4 %-0.3 % eye drops in a dropperette (Systane (PF)) 1 drp BOTH EYES Q6HPRN PRN dry eyes 01/11/24
rosuvastatin 40 mg tablet 40 mg PO HS High Cholesterol 01/11/24
simethicone 80 mg chewable tablet 80 mg PO DAILYPRN PRN gas 01/11/24
amoxicillin 875 mg-potassium clavulanate 125 mg tablet 1 tab PO BID #14 tabs 01/13/24
tamsulosin 0.4 mg capsule 0.4 mg PO HS #7 caps 01/13/24
Home Medication Changes
Pending Results: No
--- NOTE | 2024-01-13 13:03 | W.PN.GS2 ---
Addendum entered and electronically signed by Saurabh Donohue MD 01/13/24 13:23:
I saw and examined the patient.
The Coin Machine Service Repairer's note was reviewed and I agree with the note.
Comment: Improved. Unclear if the source is nephrolithiasis or diverticulitis. From surgery standpoint she is approp for DC with PO abx out of abundance of caution. She has f/u planned with GI and Urology.
Original Note:
Today's Communication / Plan
-
dispo planning
Assessment / Plan
-
73 yo female presenting with ?enteritis vs diverticulitis and passing renal calculi.
Improving overall with ABX and hydration
AFVSS
No leukocytosis today, BRYCE resolved
--ADAT
--Would continue antibiotics (ok to transition to PO upon discharge)
--Stool studies sent and pending with outpatient GI follow up scheduled
--Ok for discharge from surgical standpoint once tolerating diet
Subjective Data
-
Date of Service: January 13, 2024
Patient seen and examined at bedside with Dr. Donohue. Denies n/v. Notes pain is improved but notes she can 'feel a stone passing'. She notes loose stools and flatus. Very eager for discharge.
Objective Data
-
Intake and Output
01/12/24 01/13/24 01/14/24
06:59 06:59 06:59
Intake Total 1315 / 1315 480 / 480
Output Total 350 / 350
Balance 965 / 965 480 / 480
Intake:
Oral fluids 820 / 820 480 / 480
IV fluids (Total) 445 / 445
IV piggybacks 50 / 50
Output:
Liquid stool amount 100 / 100
Rectum 100 / 100
Urine, Voided 250 / 250
Other:
Number of approximated MODERATE 2 2
amounts of urine
Vital Signs
Temp Pulse Resp BP Pulse Ox
98.2 F 76 16 144/61 95
01/13/24 07:30 01/13/24 08:35 01/13/24 07:30 01/13/24 08:35 01/13/24 07:30
Lab Results
01/13/24 04:50
01/13/24 04:50
Calcium 9.0 mg/dl (8.4-10.2) 01/13/24 04:50
Total Bilirubin 0.8 mg/dl (0.2-1.3) 01/11/24 13:33
AST 27 U/L (14-36) 01/11/24 13:33
ALT 12 U/L (0-35) 01/11/24 13:33
Alkaline Phosphatase 132 U/L (38-126) H 01/11/24 13:33
Total Protein 7.0 g/dl (6.3-8.2) 01/11/24 13:33
Albumin 3.9 g/dl (3.5-5.0) 01/11/24 13:33
Physical Exam
-
NAD
ABD soft, tender to lower abdomen, ND
--- NOTE | 2024-01-13 13:26 | W.PN.URO.CBU ---
Today's Communication / Plan
-
- JAMES reviewed
- recommend tamsulosin 0.4 mg qhs x14 days to facilitate stone passage
- F/U with Dr. Osorio in 2 weeks
- OK to d/c home from urologic perspective
Assessment / Plan
-
BRYCE - resolved
Mild right hydronephrosis - improved on JAMES (from CT)
Suspected punctate distal right ureteral stones (<1 mm)
CTAP w/ PO contrast => mild to moderate right hydroureteronephrosis, non-obstructing 1 mm right renal stone, suspected punctate distal right ureteral stones <[address] review
WBC minimally elevated
Cr 2.0 => 1.5 => 1.0
UA +RBCs, negative WBCs
Given no lateralizing right flank symptoms and improving Cr, do not suspect patient will require surgical intervention for SUSPECTED punctate distal right ureteral stones.
Diagnosis
-
Date of Service: January 13, 2024
-
Patient Diagnosis:
BRYCE
Mild right hydronephrosis
Possible punctate distal right ureteral stones
Subjective
-
Afebrile.
Denies right flank or pelvic pain.
Denies dysuria.
Objective
-
Vital Signs
Temp Pulse Resp BP Pulse Ox
98.2 F 76 16 144/61 95
01/13/24 07:30 01/13/24 08:35 01/13/24 07:30 01/13/24 08:35 01/13/24 07:30
Intake and Output
01/12/24 01/13/24 01/14/24
06:59 06:59 06:59
Intake Total 1315 / 1315 480 / 480
Output Total 350 / 350
Balance 965 / 965 480 / 480
Intake:
Oral fluids 820 / 820 480 / 480
IV fluids (Total) 445 / 445
IV piggybacks 50 / 50
Output:
Liquid stool amount 100 / 100
Rectum 100 / 100
Urine, Voided 250 / 250
Other:
Number of approximated MODERATE 2 2
amounts of urine
Laboratory Results
01/13/24 04:50
01/13/24 04:50
Physical Exam
-
General - well developed, well nourished, no acute distress
Abdomen - soft, non-tender, non-distended, no CVAT
Skin - warm & dry with no rash
Neuro - AOx3, no motor deficits
Extremities - no clubbing, no cyanosis, no edema
Care Review
Data Reviewed
Discussed with: Hospitalist
CT Scan: Report Pers Reviewed and Image Pers Reviewed
[2024-01-13 14:45] VITALS: BP 126/74
[2024-01-13] MEDS: FLUAD (65 yr+) 2024-2025 FORMULA 0.5 ML IM (14:58)
[2024-01-13 15:10] VITALS: BP 126/74
--- NOTE | 2024-01-13 15:11 | CM ---
patient stable for dc home with no needs.patient signed medicare letter.
[2024-01-14 04:50] LABS: Hepatitis C Antibody Negative (Negative)
== END 2024-01-13 15:11 | disposition home or self-care (01) | DRG 378 ==
LOC: 3 WEST ACU 23:01
PROVIDERS: Emergency Medicine; Nurse Practitioner Adult Health; ADMITTING PHYSICIAN Hospitalist; ATTENDING PHYSICIAN Hospitalist; CONSULT PHYSICIAN Internal Medicine; CONSULT PHYSICIAN Surgery; EMERGENCY PHYSICIAN Emergency Medicine
DX: K57.33 Diverticulitis of large intestine without perforation or abscess with bleeding (principal); A09 Infectious gastroenteritis and colitis, unspecified; E87.20 Acidosis, unspecified; N17.9 Acute kidney failure, unspecified; N13.2 Hydronephrosis with renal and ureteral calculous obstruction; D64.9 Anemia, unspecified; E03.9 Hypothyroidism, unspecified; G25.81 Restless legs syndrome; I10 Essential (primary) hypertension; K58.1 Irritable bowel syndrome with constipation; E78.00 Pure hypercholesterolemia, unspecified; G47.33 Obstructive sleep apnea (adult) (pediatric); G62.9 Polyneuropathy, unspecified; I25.10 Atherosclerotic heart disease of native coronary artery without angina pectoris; Z95.5 Presence of coronary angioplasty implant and graft; I48.91 Unspecified atrial fibrillation; K21.9 Gastro-esophageal reflux disease without esophagitis; K64.8 Other hemorrhoids; Z79.01 Long term (current) use of anticoagulants; Z79.890 Hormone replacement therapy; Z79.899 Other long term (current) drug therapy; Z87.11 Personal history of peptic ulcer disease; Z87.19 Personal history of other diseases of the digestive system; Z87.442 Personal history of urinary calculi; Z88.5 Allergy status to narcotic agent; Z96.642 Presence of left artificial hip joint; Z96.651 Presence of right artificial knee joint
CPT/HCPCS: 74176; 76775; 80048; 80053; 81003; 81015; 83605; 83690; 85025; 85027; 85652; 86140; 86803; 87045; 87046; 87086; 87427; 89055; 90662; 93005; 96361; 96365; 96375; 99285; G0008